=== PATIENT | female | born 1970 | race Caucasian/White ===

== ENCOUNTER 2024-10-02 02:03 | Inpatient (IN) | payer SELFPAY ==
[2024-10-01 23:50] VITALS: BP 168/107
--- NOTE | 2024-10-01 23:50 | PHANOTE ---
med rec note- no ecw records
[2024-10-01 23:52] VITALS: BP 119/78; BP 168/107
[2024-10-01 23:55] VITALS: BP 119/78
[2024-10-01 23:59] LABS: Glucose - Point of Care 131 mg/dl (70-99)
[2024-10-02] VITALS (29 sets, daily range): BP systolic 55–136; BP diastolic 38–122; BMI 39.6
[2024-10-02 00:02] LABS: Hematocrit 48.5 % (37.0-47.0); Hemoglobin 16.4 g/dL (12.0-16.0); Mean Corp Hgb Conc. 33.8 g/dL (33.0-37.0); Mean Corpuscular Volume 90.8 fL (81.0-99.0); Nucleated Red Blood Cells % 0 %; Platelet Count 249 10^3/uL (130-400); Red Cell Dist. Width 13.2 % (11.5-14.5)
--- NOTE | 2024-10-02 00:11 | ED.GENMED ---
History of Present Illness
General
Chief Complaint: Chest Pain
Source: patient, family and ambulance crew
Exam Limitations: clinical condition
Nursing documentation reviewed up to this point in time: agreed with
History of Present Illness
History of Present Illness:
Note:
CHIEF COMPLAINT(S)
Chest pain and nausea.
HISTORY OF PRESENT ILLNESS
The patient is a 54-year-old female who presented with the acute onset of chest pain and left arm pain at approximately 8:00 PM tonight. She reports feeling flushed and lightheaded at home before calling for help. The chest pain is described as a
pressure and was initially severe, now rated at a 5 out of 10. The pain radiated to her left arm and was constant. She also reports nausea and feeling thirsty. There is a mention of her skin being mottled and pale at presentation. The patient
describes the pain as not easing off and was persistent the entire time before presentation to the hospital. She quit smoking in April due to experiencing a similar but less severe chest discomfort, which scared her enough to stop. She denied any
previous heart problems and has not consulted her family physician for many years.
SOCIAL HISTORY
The patient has a history of smoking cigarettes but quit in April due to a prior chest discomfort experience. She denies any current alcohol or recreational drug use.
PHYSICAL EXAM
- Appearance: Skin initially described as mottled and pale.
- Cardiovascular: Chest pain rated 5 out of 10 with radiation to the left arm.
- General: The patient reports feeling nauseated.
Nursing notes reviewed and vital signs reviewed.
PROBLEM LIST
Acute Problems:
- Chest pain with left arm radiation
- Nausea
- History of smoking with recent cessation
PLAN
- Immediate electrocardiogram to evaluate cardiac function.
- Consult with meat stringer.
- Administer oxygen and continue to monitor vital signs closely.
- Administer aspirin as previously given.
DIFFERENTIAL DIAGNOSIS
The Differential Diagnosis includes, in no particular order and is not limited to:
- Acute coronary syndrome
- Myocardial infarction
- Angina pectoris
- Pulmonary embolism
- Aortic dissection
- Gastroesophageal reflux disease
- Costochondritis
- Anxiety disorder
- Pericarditis
- Pneumothorax
Disposition:
SUMMARY OF ENCOUNTER
The patient, a 54-year-old female, presented to the emergency department with an acute onset of chest pain radiating to the left arm, along with nausea. Initial assessment indicated potential acute coronary syndrome. The chest pain began around 8:00
PM and was described as a pressing sensation with a severity of 5 out of 10 at presentation. Skin appeared mottled and pale. Due to the presentation and risk factors, immediate actions were taken to assess and stabilize the patient, including the
administration of aspirin and oxygen therapy. An electrocardiogram was conducted to further evaluate cardiac function.
DISPOSITION
Transfer to the labelling machine operator.
ASSESSMENT
High suspicion of anterior ST-Elevation Myocardial Infarction (STEMI).
EMERGENCY TREATMENTS ADMINISTERED
- Aspirin was administered to manage suspected myocardial infarction.
MANAGEMENT OF THE PATIENTS CARE WAS DISCUSSED WITH
Homicide Squad Captain consultation conducted with Dr. Shane at bedside for further evaluation and management.
PLAN
Immediate transfer to the labelling machine operator for further intervention due to high suspicion of STEMI. Continue monitoring vital signs closely and maintain oxygen therapy during transfer.
INDEPENDENT REVIEW OF LABS AND INTERPRETATION OF TESTS
My independent review of the electrocardiogram indicates findings consistent with possible anterior STEMI, prompting urgent transfer to the cardiac catheterization lab.
MEDICAL DECISION MAKING
-Complexity of Data Reviewed: Acute conditions affecting care include potential acute coronary syndrome and anterior STEMI. Differential Diagnosis includes acute coronary syndrome, myocardial infarction, angina pectoris, pulmonary embolism, aortic
dissection, gastroesophageal reflux disease, costochondritis, anxiety disorder, pericarditis, pneumothorax.
-Data:
Category 1
Electrocardiogram ordered and independently reviewed, consistent with anterior STEMI.
Category 3
Discussion of management conducted with meat stringer Dr. Shane regarding urgent transfer for cardiac catheterization.
-Risk:
The decision was made for urgent intervention in the labelling machine operator due to the high risk of mortality associated with suspected anterior STEMI. Prescription drug management was initiated with aspirin administration.
DIAGNOSIS
Anterior ST-Elevation Myocardial Infarction (STEMI) - ICD-10: I21.0
Review of Systems
Review of Systems
Allergies reviewed?: Yes
All Other Systems: Not applicable
Musculoskeletal: Reports other (Arm pain)
Skin: Reports other (Diaphoresis)
Psychiatric: Reports anxiety
Phy Exam
General Physical Exam
General Presentation: severe distress
General age: appears older than age
General Skin: diaphoretic, mottled and pale
General Habitus: obese
General Mental: alert and usual mental status
General Hydration: appears well hydrated
ENT Exam
ENT Exam: EOMI, pharynx normal, neck supple and normocephalic
Eye Exam
Eye Exam: PERRL, cornea clear and conjunctiva normal
Cardiovascular Exam
Cardiovascular Exam: regular rate/rhythm and tachycardia
Pulmonary Exam
Pulmonary Exam: lungs clear, no respiratory distress, no rales, no crackles, no rhonchi, no stridor, no wheezing and no cough
Gastrointestinal Exam
Gastrointestinal Exam: normal bowel sounds, non tender, soft, no organomegaly, no pulsatile mass and non distended
Neurological Exam
Neurological Exam: alert, oriented x3, no motor deficits and speech normal
Musculoskeletal Exam
Musculoskeletal Exam: full ROM and no edema
Skin Exam
Skin Exam: normal color, warm/dry, no rash and no petechia
Psychiatric Exam
Psychiatric Exam: normal mood/affect
Scores
Heart Score for Chest Pain Patients
STEMI patient?: Yes
Course
Orders/Labs/Results
Orders:
Orders
10/01/24 23:46
Electrocardiogram (*1) Urgent
Reason for Study: Chest Pain
Cardiac Monitoring- Treatment ONCE
EKG- Treatment ONCE
IV Insert/Care/Rem.- Treatment PRN
Test Result ONCE
O2 Therapy [RESP] Urgent
Titrate/Wean O2 to maintain O2 sat greater than (%): 90
Special Instructions: Maintain sats >/=90%
Pulse Ox/spot Check [RESP] Urgent
Quantity: 1
Special Instructions: ON ROOM AIR
10/01/24 23:50
Basic Metabolic Panel Urgent
Comment: NO K
Complete Blood Count/With Diff Urgent
HCG, Serum Qualitative Screen Urgent
Comment: Notify provider if positive test present
Prothrombin Time Urgent
Troponin I Urgent
10/02/24 00:07
Fentanyl Citrate/Pf [Sublimaze] 100 mcg .ROUTE .STK-MED ONE
Heparin 10,000 units .ROUTE .STK-MED ONE
Midazolam HCl [Versed] 2 mg .ROUTE .STK-MED ONE
Verapamil Injectable [Isoptin/Verapamil Injection] 5 mg .ROUTE .STK-MED ONE
10/02/24 00:08
Heparin 1000 Units/500 ml [Heparin] 1,000 units in 500 ml .ROUTE .STK-MED
Heparin Sodium,Porcine/Ns/Pf [Heparin 2000 Units/1000 ml] 2,000 unit in 1,000 ml .ROUTE .STK-MED
Lidocaine HCl/Pf [Xylocaine-Mpf 1% Vial] 100 mg .ROUTE .STK-MED ONE
Nitroglycerin [Tridil] 1,500 mcg .ROUTE .STK-MED ONE
10/02/24 00:10
Heparin 5,000 units .ROUTE .STK-MED ONE
Ticagrelor [Brilinta] 180 mg .ROUTE .STK-MED ONE
10/02/24 00:15
Amiodarone [Cordarone] 900 mg DEXTROSE 5% PVC-free BAG [D5W PVC-free BAG] 500 ml IV PER PROTOCOL
10/02/24 00:53
Eptifibatide [Integrilin] 20 ml .ROUTE .STK-MED
10/02/24 00:58
Fentanyl Citrate/Pf [Sublimaze] 100 mcg .ROUTE .STK-MED ONE
10/02/24 01:03
NORepinephrine 4 MG/250 ML [Levophed] 4 mg in 250 ml .ROUTE .STK-MED
10/02/24 01:13
EPTIFIBATIDE 75 mg/100 mL [Integrilin] 75,000 mcg in 100 ml .ROUTE .STK-MED
Furosemide [Lasix] 40 mg .ROUTE .STK-MED ONE
10/02/24 01:17
Phenylephrine HCl/0.9% NaCl [Chema-Synephrine] 1,000 mcg .ROUTE .STK-MED ONE
10/02/24 01:23
Admit Patient As Directed
Co-Sign Provider:
Level of Care: Inpatient admission
Assign to:: IVU
Physician / Group: Svitlana
Diagnosis: Anterior STEMI
Patient Condition: Serious
Reason for Hospitalization: Anterior STEMI
Expected length of stay greater than two midnights?: Yes
ELOS- Estimated Length of Stay in days: 4
I certify the patient meets the requirements for IP care: Yes
Electrocardiogram (*1) Urgent
Reason for Study: Other
Other Reason for Exam: s/p intervention
Code Status As Directed
Resuscitation Status: Full Code
CARDIAC REHAB CONSULT Routine
Co-Sign Provider:
Cardiac Rehab & Exercise Evaluation Referral
Type of Cardiac Rehab Referral: Outpatient
Diagnosis: STEMI
Date of Diagnosis/Surgery:
Referring Provider: John Shane
[facility] Intensive Cardiac Rehab Exercise Prescription
The above named person is capable of participating in an intensive cardiac rehab exercise therapy program
under the guidance of the [facility] cardiac rehab staff, outpatient registered dieticians and
supervision of a physician.
ICR Program Objectives:
Provide supervised exercise, cooking classes, nutritional counseling and healthy mind-set education to
improve the function/symptom free work capacity to an optimal level as well as control risk factors to
prevent the progression of heart disease. During the supervised exercise therapy session some or all of
the following may be included in the cardiac rehab session: ECG telemetry, BP, heart rate, rate of
perceived exertion, symptoms/tolerance, cholesterol testing and education. Exercise modalities may
include: treadmill, upright or recumbent bike, spin bike, rowing machine, elliptical, recumbent
elliptical, arm-bike machine, recumbent stepper and free weights.
Intensity:
All CR staff will use ACSM guidelines: Most patients will exercise in the following range: Heart Rate
[place] range of 40% to 80% & Oxygen Uptake reserve range 40-80% (VO2R). Peak heart rate and VO2 are
derived from the cardiac rehab submaximal graded exercise test at RPE of 13/14 out of 20. Initial
intensity range: RPE 11 to 14/20 and may expand to 11 to 16/20.
Duration & Frequency:
If appropriate the patient will be progressed up to 40 minutes of exercise therapy. Patients will be
instructed to come three times a week in cardiac rehab and at a home/other gym to achieve optimal
physical activity/exercies i.e. 4000-10,000 steps per day.
Education:
The patient will receive one-on-one education during their orientation, initial exercise evaluation, ITP
reassessments and discharge session. Each exercise session will also include an education class (30-40
minutes).
Activity As Directed
Activity Level: Out of Bed- Chair
Comment: bed/chair rest for 2 hours then out of bed ad ravindra
Landing Worker Procedure As Directed
Cardiac Cath Procedure: percutaneous coronary intervention
Intake/ Output As Directed
Frequency: Per unit guidelines
Notify MD As Directed
Notify physician if: immediately for chest pain or bleeding from access site(s)
Radial Artery Hemostasis Method As Directed
Instructions:: 3 mL out at 2 hour posts placement of band
3 mL out at 2 1/2 hours post placement of band
3 mL out at 3 hours post placement of band
Off at 3 1/2 hours post placement of band
If any oozing or hemotoma occurs:: re-inflate band and call provider
Site Checks As Directed
Check access site for bleeding/hematoma: Yes
Comment: on arrival, Q15min x4, Q30min x2, Q1 hr x2, Q2 hr x2, Q4 hr or per
protocol
Vascular Checks As Directed
Location: distal to access site - pulse check
Frequency: Other
Comment: on arrival, Q15min x4, Q30min x2, Q1 hr x2, Q2 hr x2, Q4 hr or per protocol
Vital Signs As Directed
Frequency: Other
Additional Instructions:: on arrival, Q15min x4, Q30min x2, Q1 hr x2, Q2 hr x2, then Q4 hr or per unit
protocol
PRN Pain Medication Management As Directed
May give lesser potent ordered pain med per pt: Yes
preference::
Protocol:: Medication orders for pain may be administered in a
manner that supports deferring to patient preference
when the pt is:
- Requesting an ordered lesser potent pain medication.
Least to most potent pain medications are defined
as: acetaminophen < NSAID < tramadol < opioids
(morphine, oxycodone, hydromorphone).
- Requesting a lesser dose of the same medication IF
ORDERED.
- Requesting a less intrusive route of administration
if both routes are prescribed by the provider (PO <
IV).
10/02/24 01:24
DX Deep Vein Thrombosis Video Routine
10/02/24 01:27
Ondansetron Injectable [Zofran] 4 mg .ROUTE .STK-MED ONE
10/02/24 01:45
EPTIFIBATIDE 75 mg/100 mL [Integrilin] 75,000 mcg in 100 ml IV ORDERED RATE
10/02/24 02:00
Flush (0.9% Sodium Chloride) [Flush (Nss)] See Dose Instructions IV PER PROTOCOL
10/02/24 02:57
Cardiovascular Evaluation IN AM
Complete Blood Count/No Diff IN AM
LDL Cholesterol, Direct Routine
Troponin I Q6H
10/02/24 02:58
Glycohemoglobin (HgbA1c) Routine
10/02/24 06:00
Echo 2D MMode Color/Doppler IN AM
Reason for Study: Anterior STEMI and occluded right coronary
Cardiology Consult: John Shane
Electrocardiogram (*1) IN AM
Reason for Study: Other
Other Reason for Exam: s/p intervention
Cholesterol Lowering
At Your Request: Full Participation
Cholesterol Lowering: Sodium, 2 Gram
10/02/24 07:34
Troponin I Q6H
10/02/24 08:00
Aspirin Chewable [Low Strength Aspirin] 81 mg PO DAILY
Pantoprazole [Protonix] 40 mg PO DAILY
Ticagrelor [Brilinta] 90 mg PO BID
10/02/24 13:52
Troponin I Q6H
10/02/24 18:00
Atorvastatin [Lipitor] 80 mg PO QPM
Enoxaparin Sodium [Lovenox] 40 mg SC QPM
Abnormal Lab Results
10/01/24 10/01/24 10/02/24
23:50 23:58 00:23
WBC 17.3 H 10^3/uL
(4.8-10.8)
Hgb 16.4 H g/dL
(12.0-16.0)
Hct 48.5 H %
(37.0-47.0)
Abs Immat Gran (auto) 0.1 H 10^3/uL
(0-0.05)
Absolute Neuts (auto) 14.1 H 10^3/uL
(1.4-6.5)
Neutrophils % 81.2 H %
(42.2-75.2)
Lymphocytes % 15.2 L %
(20.5-51.1)
Chloride 109 H mmol/L
(98-107)
Carbon Dioxide 21 L mmol/L
(22-30)
Creatinine 1.5 H mg/dL
(0.6-1.0)
Glucose 199 H mg/dl
(70-99)
Troponin I 0.971 H* ng/ml
POC Glucose 131 H mg/dl
(70-99)
POC ACT Low Range 184 H Seconds
(116-155)
10/02/24 10/02/24 10/02/24
00:35 00:52 01:15
WBC
Hgb
Hct
Abs Immat Gran (auto)
Absolute Neuts (auto)
Neutrophils %
Lymphocytes %
Chloride
Carbon Dioxide
Creatinine
Glucose
Troponin I
POC Glucose
POC ACT Low Range 234 H Seconds 303 H Seconds 268 H Seconds
(116-155) (116-155) (116-155)
10/01/24 23:50
10/01/24 23:50
Vital Signs
Initial and Last Documented VS:
Initial Vital Signs
Pulse Resp
120 22
10/01/24 23:45 10/01/24 23:45
Last Documented Vital Signs
Temp Pulse Resp BP Pulse Ox
98.3 F 88 17 96/67 96
10/02/24 23:00 10/02/24 23:00 10/02/24 23:00 10/02/24 23:00 10/02/24 23:00
*Pulse Oximetry
SaO2: 99
Oxygen Mode of Delivery: Simple mask
Patient hypoxic: no
*Critical Care Note
Total Time (30-74mins, 75-104mins- exclusive of procedures): 32 (Critical care statement: A total of 32 minutes of critical care time was provided for this patient. This time is separate from time utilized to perform the aforementioned documented
procedures. Aggregate critical care time includes only time during which I was engaged in work directl)
ED Attending Note
-
Portions of this chart may have been created with voice recognition software.� Occasional wrong word or��sound alike� substitutions may have occurred due to the inherent limitations of voice recognition software.
Discharge Plan
Departure
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
Date of Disposition: 10/02/24
Time of Disposition: 00:14
Admit to: labelling machine operator
Presentation/result/management discussed w/ accepting MD/DO: Svitlana
Condition: Serious
Discharge Problem:
ST elevation (STEMI) myocardial infarction
Interventions
Interventions:
*General Assessment Last Done: 10/01/24 23:45
*Neglect/Abuse Screening Last Done: 10/01/24 23:45
*ED- Fall Risk Assessment Last Done: 10/01/24 23:45
*ED COVID-19 Vaccine History Last Done: 10/01/24 23:45
*Nursing Disposition Last Done: 10/02/24 00:25
ED- Cardiac Assessment Last Done: 10/01/24 23:55
Discharge Date and Time
Discharge Date/Time: 10/02/24 00:25
[2024-10-02 00:15] LABS: INR 0.89; PT 12.6 Sec (11.4-14.6)
[2024-10-02 00:18] LABS: HCG, Serum Qualitative Screen Negative
[2024-10-02 00:28] LABS: Blood Urea Nitrogen 16 mg/dl (7-17); Calcium 9.8 mg/dl (8.4-10.2); Carbon Dioxide 21 mmol/L (22-30); Chloride 109 mmol/L (98-107); Estimated Creatinine Clearance 44 ml/min; Glucose 199 mg/dl (70-99); Sodium 140 mmol/L (135-145); eGFR 41.16
[2024-10-02 00:29] LABS: ACT-LR - POC 184 Seconds (116-155)
[2024-10-02 00:43] LABS: Troponin I 0.971 ng/ml
[2024-10-02 00:44] LABS: ACT-LR - POC 234 Seconds (116-155)
[2024-10-02 00:58] LABS: ACT-LR - POC 303 Seconds (116-155)
[2024-10-02 01:21] LABS: ACT-LR - POC 268 Seconds (116-155)
--- NOTE | 2024-10-02 01:48 | ITS.CL.CATH ---
Business Office Representative - Catheterization
Cardiac Catheterization
Procedure Report:
LEFT HEART CATH AND CORONARY INTERVENTION
Date of Procedure: October 02, 2024
Referring: [facility]
PROCEDURES:
1. Left heart catheterization with coronary and single-plane left ventriculography
2. Successful stenting of the proximal LAD with a 2.5 x 22 mm Varnell stent that was implanted at nominal pressures and postdilated proximally to 14 tom, in the mid stent to 20 tom, and distally to 18 tom
3. Intravascular ultrasound catheter was dropped, however, IVUS was not performed secondary to a computer issue which had resolved by the end of the procedure
INDICATION: This is a 54-year-old female who rarely seeks any medical attention and has not been seen by her family physician for the past 8 to 10 years. She states that she was a heavy smoker but stopped in April when she developed chest
discomfort. Her chest discomfort improved with smoking cessation. This evening she developed the sudden onset of severe substernal chest discomfort radiating into the arm beginning at approximately 8 PM. At her 's insistence, 911 was
called at approximately midnight because she looks so uncomfortable. She was diaphoretic and complaining of 8-10/10 substernal chest pressure which improved slightly with heparin and nitroglycerin. Her electrocardiogram at home was worrisome for
an evolving anterior wall myocardial infarction and a prehospital STEMI alert was activated
ACCESS: Right radial artery, 6 Turkish sheath
HEMODYNAMICS (mmHg):
AO (s/d, m) : 116/71, 92
LV (s/d) : 128/29
LVEDP : 38
CORONARY FINDINGS
Dominance: Right
LEFT MAIN: Normal
LEFT ANTERIOR DESCENDIN% ostial narrowing. The LAD becomes 100% occluded in the mid vessel at the origin of a small diseased first diagonal branch with an ambiguous cap.
RAMUS INTERMEDIUS: Moderate caliber vessel that bifurcates into 2 daughter branches. There is a 50% stenosis in the more lateral daughter branch just beyond the bifurcation
CIRCUMFLEX: Small and supplies a limited territory
RIGHT CORONARY: Proximally occluded with the distal vessel filling via faint [id number] and [id number] collaterals
VENTRICULOGRAPHY: Left ventriculography is performed in an MATOS projection. The ventricle is mildly dilated and severely hypokinetic. The anterior basal segment moves best with mid to distal anterior and apical hypokinesis to dyskinesis. The
inferior apical wall is also noted to be severely hypokinetic. Visually the estimated ejection fraction is 20%
ANGIOPLASTY PROCEDURE DETAIL: Upon review of the diagnostic catheterization films we elected to proceed with percutaneous revascularization of the occluded LAD with hopes of finding the occlusion beyond the first diagonal branch. Intravenous
heparin was administered and the ACT was monitored throughout the procedure. Fortunately, the BMW guidewire across the occluded segment in the mid LAD and was advanced to the distal vessel. Balloon predilation was performed using a 2.0 x 15 mm
Euphora balloon with serial inflations performed from the proximal to mid LAD. Antegrade flow was restored. At this point a double bolus of Integrilin was administered. She was antiplatelet na�ve and suffering from a large anterior wall
myocardial infarction. The Integrilin was administered according to standard protocol.
A 2.5 x 22 mm Gonzalo stent was then advanced over the guidewire and positioned with angiographic and fluoroscopic guidance in the cranial and caudal views. The Gonzalo stent was implanted at 12 tom. An intravascular ultrasound catheter was dropped,
however, intravascular ultrasound was not performed given a computer error. At this point the decision was made to post dilate the stent to high pressures with a 2.5 mm noncompliant balloon as it appeared well conformed to the vessel diameter.
Distally the stent was implanted with a 2.5 Euphora noncompliant balloon to 18 tom, 20 tom within the midportion of the stent, and 14 tom on the ostial portion of the stent.
SEDATION: 56 minutes of procedural sedation was utilized. An independent medical billing associate was present to assist with and help manage the patient's level of consciousness and physiologic status
RADIATION SUMMARY: Fluoro Time (min): 13.5, Dose (mGy): 1657, DAP (Gy.cm2) : 103
CONCLUSIONS
1. Evolving anterior wall myocardial infarction with successful stenting of the proximal to mid LAD with a 2.5 x 22 mm Varnell stent that was postdilated with a 2.5 mm noncompliant balloon to high pressures
2. Chronically occluded right coronary artery collateralized into right to right and left to right fashion
3. 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 The LVEDP was elevated to 38 mmHg and an in his furosemide was administered
RECOMMENDATIONS
1. Trend serial troponin levels and electrocardiogram. Obtain fasting lipid profile and hemoglobin A1c
2. Echocardiogram in a.m.
3. 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
4. Uninterrupted dual antiplatelet therapy with aspirin and ticagrelor
5. High intensity statin therapy
6. Further medical management based on clinical course
Copy to: Dr. John Shane
[2024-10-02 03:26] LABS: Hematocrit 42.1 % (37.0-47.0); Hemoglobin 14.1 g/dL (12.0-16.0); Mean Corp Hgb Conc. 33.5 g/dL (33.0-37.0); Mean Corpuscular Volume 90.9 fL (81.0-99.0); Platelet Count 210 10^3/uL (130-400); Red Cell Dist. Width 13.3 % (11.5-14.5)
[2024-10-02 03:49] LABS: HDL Cholesterol 48 mg/dl
[2024-10-02 04:30] LABS: Troponin I 208.000 ng/ml
[2024-10-02 04:46] LABS: LDL Cholesterol, Direct 122 mg/dl
--- NOTE | 2024-10-02 06:25 | PTCARENOTE ---
Rec'd pt as stemi admission from greenhouse laborer. Pt AAO*3, BP systolic in the 80-90's on arrival to IVU, and SR on TELE monitor. EKG shows previous infarct/stemi Dr. Shane and CT GABE Jordan aware. Pt with R radial site intact. Pt resting iwth call
whipple in reach and plan of care ongoing. See MAR and flowchart for full pt care and assessment. Rec'd troponin of [address] GABE Ramos aware.
[2024-10-02 07:55] LABS: Glycohemoglobin (HgbA1c) 6.0 % (4.0-5.6)
[2024-10-02 09:13] LABS: Troponin I > 400.000 ng/ml
[2024-10-02] MEDS: ZOFRAN 4 MG IV (09:33)
--- NOTE | 2024-10-02 09:38 | W.PN.CARDCBS ---
Addendum entered and electronically signed by Sanya Oonfre MD 10/02/24 11:24:
Patient seen, interviewed and examined by me.
Emergent Cath 10/01/24 In the setting of large anterior wall ST segment elevation myocardial infarction(peak troponin > 400) finds multivessel coronary artery disease treated with emergent coronary intervention of the culprit vessel which is a100%
occlusion of the mid LAD which was successfully stented. Also noted to have GAME DESIGNER/CREATIVE DIRECTOR of RCA.
Ventriculography demonstrates severe left ventricular systolic dysfunction with ejection fraction of 20%.
PCP: None
Loading Machine Operator Helper: None prior to admission, initially seen by Dr. Shane
This morning she describes she is no longer having the type of chest pain that brought her into the emergency room last night. She is having occasional chest discomfort when she takes a deep breath.
Well-appearing, no acute distress
Regular rate and rhythm with normal S1 and S2, no S3 no S4. There is a grade 1/6 apical holosystolic murmur and no rubs. PMI is normally placed.
Lungs are clear to auscultation bilaterally without wheezes rales or rhonchi.
Abdomen soft nontender nondistended with normoactive bowel sounds
Extremities show trace pretibial edema bilaterally no clubbing or cyanosis.
Neurologic exam is grossly nonfocal.
Impression:
Presented with chest pain
Evolving anterior STEMI, peak trop >400
CAD
100% occlusion of mid LAD s/p 2.5 x 22 mm [place] JULIA 10/02/2024
GAME DESIGNER/CREATIVE DIRECTOR of RCA by cath 5CM, EF 20% by ventriculography
HTN
HLD
Pre-DM, Hgb A1c 6.0%
Renal insufficiency, creat 1.5]
Prior tobacco abuse, quit in 04/2024
Echo 10/02/2024: Study pending
Recommendations
Acute anterior wall ST segment elevation myocardial infarction with peak troponin of greater than 400 and associated with severe left ventricular systolic dysfunction by ventriculography and elevated LVEDP in the acute setting.
Continue Integrilin drip
Maintain aspirin 81 mg daily
Maintain Brilinta 90 mg twice daily
Maintain high-dose statin, atorvastatin 80 mg daily
Blood pressure is improved, add beta-tereso today
Heart failure with reduced ejection fraction. Severe left ventricular systolic dysfunction may impart be related to her acute myocardial infarction and while there may be some expectation for improvement in left ventricular systolic function with
revascularization, she also has known chronic total occlusion of the RCA which could be playing at least some role in left ventricular systolic dysfunction.
Check echocardiogram this morning
Adding beta-tereso today as blood pressures improved. Toprol-XL 12.5 mg daily
Consideration for VAIBHAV inhibitor/ARB as blood pressure and renal function allow (creatinine 1.5 on admission, uncertain of baseline)
Also to consider SGLT2 inhibitor
Renal dysfunction, uncertain if acute or chronic. Creatinine 1.5 on admission, uncertain of baseline
Checking repeat labs this morning to include renal function
Original Note:
Today's Communication / Plan
-
Anterior STEMI overnight. s/p LAD PCI
Continue to trend troponin
Continue aspirin, brilinta
Continue Integrilin drip
Check echo
New to high intensity statin.
Zofran given for nausea
Impression / Plan
-
PCP: None
Loading Machine Operator Helper: None prior to admission, initially seen by Dr. Shane
Impression:
Presented with chest pain
Evolving anterior STEMI, peak trop >400
CAD
100% occlusion of mid LAD s/p 2.5 x 22 mm [place] JULIA 10/02/2024
GAME DESIGNER/CREATIVE DIRECTOR of RCA by cath 10/02/2024
CM, EF 20% by ventriculography
HTN
HLD
Pre-DM, Hgb A1c 6.0%
Renal insufficiency, creat 1.5]
Prior tobacco abuse, quit in 04/2024
Echo 10/02/2024: Study pending
Plan:
-Presented with chest pain with radiation to left arm. Admitted with evolving anterior STEMI, troponin >400.
-Taken urgently to laborer general overnight 10/02 and found to have 100% occlusion of the mid LAD which was successfully stented. Also noted to have GAME DESIGNER/CREATIVE DIRECTOR of RCA.
-Continue aspirin and Brilinta.
-On Integrilin drip.
-Chest pain improved. Does note some soreness this AM which feels different from presenting chest pain.
-Biggest complaint currently is nausea. Zofran ordered, await response. QTc stable by ECG 10/02 at 469 ms
-LDL 122. New to high intensity statin.
-Echo pending this AM. EF noted to be 20% by ventriculography during cath 10/02.
-Hypotension limits up titration of medical therapy at this time with BP 81/66 this AM
-Runs of NSVT noted on initial ECG and on tele this AM. Continue to follow. Ideally would start BB as BP allows
Progress Note - Loading Machine Operator Helper
Subjective
Date of Service: October 02, 2024
Some chest soreness noted as well as nausea.
Objective
Labs:
10/02/24 02:57
10/01/24 23:50
Labs
Hgb 14.1 g/dL (12.0-16.0) 10/02/24 02:57
Hct 42.1 % (37.0-47.0) 10/02/24 02:57
Plt Count 210 10^3/uL (130-400) 10/02/24 02:57
PT 12.6 Sec (11.4-14.6) 10/01/24 23:50
INR 0.89 10/01/24 23:50
Sodium 140 mmol/L (135-145) 10/01/24 23:50
Potassium mmol/L (3.5-5.1) 10/01/24 23:50
BUN 16 mg/dl (7-17) 10/01/24 23:50
Creatinine 1.5 mg/dL (0.6-1.0) H 10/01/24 23:50
Glucose 199 mg/dl (70-99) H 10/01/24 23:50
Troponins
10/01/24 10/02/24 10/02/24
23:50 02:57 07:34
Troponin I 0.971 H* 208.000 H* D > 400.000 H* D
Vital Signs and I&O:
Vital Signs
Temp Pulse Resp BP Pulse Ox
97.8 F 90 20 97
10/02/24 06:54 10/02/24 03:00 10/02/24 06:54 10/02/24 02:47 10/02/24 06:54
Vital Signs
Temp Pulse Resp BP Pulse Ox
97.8 F 90 20 97
10/02/24 06:54 10/02/24 03:00 10/02/24 06:54 10/02/24 02:47 10/02/24 06:54
Intake & Output
09/30/24 10/01/24 10/02/24 10/03/24
06:59 06:59 06:59 06:59
Output Total 500 / 500
Balance -500 / -500
Physical Exam
Physical Exam
GEN: No distress, awake, alert, oriented x3
HEENT: supple, anicteric, mmm
LUNGS: CTA b/l, no wheezes/rales
CV: Reg, S1/S2, no murmur
EXT: No clubbing, cyanosis, or edema
NEURO: Gross non-focal
SKIN: Warm, dry, no rash
[2024-10-02] MEDS: LOW STRENGTH ASPIRIN 81 MG PO (10:50)
[2024-10-02] MEDS: BRILINTA 90 MG PO ×2 (10:51→20:48)
[2024-10-02] MEDS: PROTONIX 40 MG PO (10:51)
[2024-10-02] MEDS: TOPROL XL 12.5 MG PO (11:37)
[2024-10-02] MEDS: INTEGRILIN 100 IV (12:16)
--- NOTE | 2024-10-02 13:02 | PTCARENOTE ---
Discussed new medicines for patient and plan of care at this time. VSS. Pt continues to c/o 'chest ache w/ deep breathing'. Offered comfort measures. Meds as ordered. Will monitor.
--- NOTE | 2024-10-02 14:28 | CM ---
Noted that patient does not have insurance coverage. Noted that patient was prescribed Brilinta. Good RX coupon available for Ticagrelor (generic version), estimated cost is $31.49. I printed out coupon and will place in chart.
TT to [facility] to update that all medications should be generic.
--- NOTE | 2024-10-02 14:30 | CM ---
CM following for DC planning needs.
Met w/ patient, spouse + dtr. at bedside to complete initial assessment.
Pt. resides in a private, 2 STH w/ spouse, dtr. Pt. is functionally indep. at baseline w/ ADLs, mobility without the use of any assisted device.
Pt. does not work and she has no medical insurance.
We reviewed that medications will need to be generic upon DC. TT to PA-C to update.
Goal is for home, no needs.
Will cont. to follow.
[2024-10-02 14:44] LABS: Albumin 4.2 g/dl (3.5-5.0); Alkaline Phosphatase 66 U/L (38-126); Blood Urea Nitrogen 19 mg/dl (7-17); Calcium 9.3 mg/dl (8.4-10.2); Carbon Dioxide 21 mmol/L (22-30); Chloride 109 mmol/L (98-107); Estimated Creatinine Clearance 41 ml/min; Glucose 133 mg/dl (70-99); Potassium 4.3 mmol/L (3.5-5.1); Sodium 141 mmol/L (135-145); Total Protein 6.9 g/dl (6.3-8.2); eGFR 38.09
[2024-10-02 14:56] LABS: Troponin I 330.000 ng/ml
[2024-10-02 14:59] LABS: ALT (SGPT) 114 U/L (0-35); AST (SGOT) 748 U/L (14-36)
[2024-10-02] MEDS: LIPITOR 80 MG PO (17:34)
[2024-10-02] MEDS: LOVENOX 40 MG SC (18:11)
[2024-10-03] VITALS (10 sets, daily range): BP systolic 78–109; BP diastolic 53–79; BMI 39.2
[2024-10-03 04:52] LABS: ALT (SGPT) 84 U/L (0-35); AST (SGOT) 420 U/L (14-36); Albumin 3.3 g/dl (3.5-5.0); Alkaline Phosphatase 65 U/L (38-126); Blood Urea Nitrogen 21 mg/dl (7-17); Calcium 8.7 mg/dl (8.4-10.2); Carbon Dioxide 25 mmol/L (22-30); Chloride 109 mmol/L (98-107); Estimated Creatinine Clearance 43 ml/min; Glucose 119 mg/dl (70-99); Potassium 4.1 mmol/L (3.5-5.1); Sodium 138 mmol/L (135-145); Total Protein 5.7 g/dl (6.3-8.2); eGFR 41.16
--- NOTE | 2024-10-03 07:07 | W.PN.UPDATE ---
Update Note
Progress Note Update
RN reported low BP 87/62 HR 80, asymptomatic. Repeat BP 97/73 HR 85. no new intervention at present.
--- NOTE | 2024-10-03 08:33 | W.PN.CARDCBS ---
Today's Communication / Plan
-
Continue new medical therapy which was started just yesterday.
Assess for any ambulatory symptoms today
Attempt up titration of guideline directed medical therapy for heart failure with reduced ejection fraction if blood pressure and renal function allows.
Impression / Plan
-
PCP: None
Public Events Facilities Rental Manager: None prior to admission, initially seen by Dr. Shane
Impression:
Presented with chest pain
Evolving anterior STEMI, peak trop >400
CAD
100% occlusion of mid LAD s/p 2.5 x 22 mm [place] JULIA 10/02/2024
LEAD MAN OVER ALL DIES IN PATTERN SHOP of RCA by cath 10/02/2024
CM, EF 20% by ventriculography
HTN
HLD
Pre-DM, Hgb A1c 6.0%
Renal insufficiency, creat 1.5]
Prior tobacco abuse, quit in 04/2024
Cath 10/02/2024: 100% occlusion of mid LAD, LEAD MAN OVER ALL DIES IN PATTERN SHOP of RCA, underwent drug-eluting stent to the mid LAD lesion. LVEDP 38
Echo 10/02/2024: Severely reduced left ventricular systolic function with ejection fraction 15 to 20% with multiple segmental wall motion abnormalities involving the inferior septum, anterior septum, inferior and apical segments.
Plan:
Presented with chest pain with radiation to left arm. Admitted with evolving anterior STEMI, troponin >400.
Taken urgently to [facility] labor and delivery overnight 10/02 and found to have 100% occlusion of the mid LAD which was successfully stented. Also noted to have LEAD MAN OVER ALL DIES IN PATTERN SHOP of RCA.
Pain-free since coronary intervention. Second troponin down to 330
Integrilin drip completed
Maintain aspirin 81 mg daily and Brilinta 90 mg twice daily (new this admission)
Maintain Toprol-XL 12.5 mg daily (new this admission)
Maintain atorvastatin 80 mg daily (new this admission). LDL 122. New to high intensity statin.
Hypotension has limited further up titration of medical therapy as well as addition of guideline directed medical therapy for heart failure with reduced ejection fraction
Additionally, renal insufficiency is present uncertain chronicity, creatinine between 1.5 and 1.6, this further limits guideline directed medical therapy for HFrEF
Continue to trend troponin today
Up and ambulate today and assess activity related symptoms
Discussed in detail with patient, all of her questions have been answered.
Total time spent today was 52 minutes in preparing to see the patient, seeing the patient and coordination of care. This included review of recent laboratory evaluations, cardiac testing, imaging studies, records as well as personally interviewing
and examining the patient, which included discussion of their tests, review/ordering medications, and communicating with other healthcare professionals and also treatment planning as well as counseling.
Progress Note - Public Events Facilities Rental Manager
Subjective
Date of Service: October 03, 2024
Sleeping but easily arousable. Describes no chest pain or shortness of breath at rest. Admits she has not ambulated much at all as of yesterday.
Objective
Labs:
10/02/24 02:57
10/03/24 03:32
Labs
Hgb 14.1 g/dL (12.0-16.0) 10/02/24 02:57
Hct 42.1 % (37.0-47.0) 10/02/24 02:57
Plt Count 210 10^3/uL (130-400) 10/02/24 02:57
PT 12.6 Sec (11.4-14.6) 10/01/24 23:50
INR 0.89 10/01/24 23:50
Sodium 138 mmol/L (135-145) 10/03/24 03:32
Potassium 4.1 mmol/L (3.5-5.1) 10/03/24 03:32
BUN 21 mg/dl (7-17) H 10/03/24 03:32
Creatinine 1.5 mg/dL (0.6-1.0) H 10/03/24 03:32
Glucose 119 mg/dl (70-99) H 10/03/24 03:32
Troponins
0710/02/24 10/02/24
23:50 02:57 07:34
Troponin I 0.971 H* 208.000 H* D > 400.000 H* D
10/02/24
13:52
Troponin I 330.000 H*
Vital Signs and I&O:
Vital Signs
Temp Pulse Resp BP Pulse Ox
97.8 F 82 18 93/73 97
10/03/24 08:24 10/03/24 07:00 10/03/24 08:24 10/03/24 05:50 10/03/24 08:24
Vital Signs
Temp Pulse Resp BP Pulse Ox
97.8 F 82 18 93/73 97
10/03/24 08:24 10/03/24 07:00 10/03/24 08:24 10/03/24 05:50 10/03/24 08:24
Intake & Output
10/01/24 10/02/24 10/03/24 10/04/24
06:59 06:59 06:59 06:59
Intake Total 260 / 260
Output Total 500 / 500 300 / 300
Balance -500 / -500 -40 / -40
Physical Exam
Physical Exam
No acute distress
Regular rate and rhythm with normal S1 and S2, no S3 no S4 grade 1/6 apical holosystolic murmur no rubs. PMI is laterally and inferiorly displaced
Abdomen soft nontender nondistended with normoactive bowel sound
Extremity shows no clubbing cyanosis, there is +1 pretibial edema bilaterally
Neurologic exam is grossly nonfocal
Lungs are clear to auscultation bilaterally
[2024-10-03] MEDS: TOPROL XL 12.5 MG PO (09:28)
[2024-10-03] MEDS: BRILINTA 90 MG PO ×2 (09:28→20:48)
[2024-10-03] MEDS: PROTONIX 40 MG PO (09:28)
[2024-10-03] MEDS: LOW STRENGTH ASPIRIN 81 MG PO (09:28)
[2024-10-03 11:11] LABS: Troponin I 136.000 ng/ml
--- NOTE | 2024-10-03 12:35 | PTCARENOTE ---
Patient resting in bed, her at the bedside. Denies any chest pain or sob. States she is feeling much better than yesterday. Was able to eat some breakfast and the discomfort she was having with inspiration has subsided. Right wrist is
tender, but dressing is dry and intact with a strong pulse and no signs of hematoma. Patient encouraged to watch CAD videos, and I reviewed information in CAD book with her. Encouraged to ambulate in her room and gradually increase her activity as
she can tolerate. States she still feels that she is easily fatigued.
[2024-10-03] MEDS: LIPITOR 80 MG PO (18:20)
[2024-10-03] MEDS: LOVENOX 40 MG SC (18:20)
--- NOTE | 2024-10-03 18:39 | PTCARENOTE ---
Patient only ambulated in her room but stated she wasn't able to do much, that she felt fatigued and was focusing on trying to eat since she wasn't able to tolerate much PO yesterday. Using 2L NC intermittently, wearing it presently, when
questioned if she felt sob, she stated she was on a long phone conversation and felt winded and placed the O2 back on.
[2024-10-04 04:21] VITALS: BP 107/74
[2024-10-04 05:06] LABS: ALT (SGPT) 50 U/L (0-35); AST (SGOT) 156 U/L (14-36); Albumin 3.2 g/dl (3.5-5.0); Alkaline Phosphatase 63 U/L (38-126); Blood Urea Nitrogen 26 mg/dl (7-17); Calcium 8.7 mg/dl (8.4-10.2); Carbon Dioxide 25 mmol/L (22-30); Chloride 112 mmol/L (98-107); Estimated Creatinine Clearance 46 ml/min; Glucose 124 mg/dl (70-99); Potassium 4.2 mmol/L (3.5-5.1); Sodium 139 mmol/L (135-145); Total Protein 5.7 g/dl (6.3-8.2); eGFR 44.71
[2024-10-04 05:54] LABS: Troponin I 85.700 ng/ml
[2024-10-04 07:50] VITALS: BP 102/74; BMI 39.1
--- NOTE | 2024-10-04 08:36 | W.PN.CARDCBS ---
Addendum entered and electronically signed by Mara Floyd PA-C 10/04/24 10:37:
[id number]
Addendum entered and electronically signed by Danny Banegas MD 10/04/24 10:11:
I saw and examined the patient.
The GLUING MACHINE ADJUSTER or PA's note was reviewed and I agree with the note.
Comment: General: Well developed, well nourished in NAD.
Neck: Supple, no JVD, HJR, carotids +2 B/L, no bruits bilaterally.
Heart: Non displaced PMI, RRR, no murmurs, No S3, S4, no rubs.
Lungs: Clear to auscultation bilaterally, no wheeze, rhonchi, rubs bilaterally,
normal expiratory phase.
Extremities: No clubbing, cyanosis or edema bilaterally.
Neuro: Grossly nonfocal, awake, alert and oriented x3.
Stable from cardiology viewpoint but remains severely inactive. She is encouraged to get out of bed and ambulate. If stable possible discharge later today. Follow-up has been arranged. She has coverage for Brilinta through [employer]. Discharge
greater than 30 minutes
Original Note:
Today's Communication / Plan
-
Change from Brilinta to Plavix
I called cardiac rehab to check in with patient about cost---heard back from rehab, they didn't realize patient did not have insurance and will come back to room to discuss alternatives
Patient needs to look up cost of meds using [employer] [facility]lan or empirically send to [employer] or [employer]
Needs to get OOB and eat for today
Impression / Plan
-
PCP: None
Facilities Manager: None prior to admission, initially seen by Dr. Shane
Impression:
Presented with chest pain
Evolving anterior STEMI, peak trop >400
CAD
100% occlusion of mid LAD s/p 2.5 x 22 mm Gonz[place] JULIA 10/02/2024
ELECTRICAL EQUIPMENT TESTER of RCA by cath 10/02/2024
ICM, EF 20% by ventriculography, 15-20% by echo 10/02/24
HTN
HLD
Possible CKD, Cre 1.5 on admission without previous for comparison
Prior tobacco abuse, quit in 04/2024
Hyperglycemia and prediabetes
Cath 10/02/2024: 100% occlusion of mid LAD, ELECTRICAL EQUIPMENT TESTER of RCA, underwent drug-eluting stent to the mid LAD lesion. LVEDP 38
Echo 10/02/2024: Severely reduced left ventricular systolic function with ejection fraction 15 to 20% with multiple segmental wall motion abnormalities involving the inferior septum, anterior septum, inferior and apical segments.
Plan:
-Patient admitted with AWMI and peak Troponin greater than 400. Patient with ELECTRICAL EQUIPMENT TESTER of RCA and collateral circulation and 100% mid LAD that was stented with a 2.5 mm Gonzalo JULIA.
-New to Brilinta, but she does not have any medical insurance. Will change to clopidogrel, last dose of Brilinta 10/03/24 PM, will give Plavix 600 mg 10/04/24 PM. Recommended to patient that she download and use the [employer] harlan or if she doesn't want to
do that then in general [employer] have the best falk prices for meds.
-Reviewed with patient that she should take aspirin 81 mg daily lifelong with virtually no exceptions.
-New to atorvastatin 80 mg daily, direct LDL 122.
-New to Toprol XL 12.5 mg daily, low dose due to symptomatic hypotension. Patient needs to be OOB 10/04/24 and reassess BP. Patient says that she was told about 8 years ago that she had high BP, but did not follow up and has not had medical insurance
for over a year and not seeking regular medical care.
-Call to cardiac rehab 10/04/24 by me to check on ability to complete cardiac rehab with medicaid pending. Asked cardiac rehab to talk to patient.
-Hyperglycemic and HgbA1c 6% c/w prediabetes. Low carb diet and encouraged to establish with a PCP.
-Patient already quit smoking on her own in April and I congratulated her on that feat!
-Tele reviewed by me 10/04/24 and patient with frequent solitary PVCs, no VT
-Cre was 1.5 on admission, peaked at 1.6 on 10/02/24 and improved to 1.4 on 10/04/24. No known h/o CKD. New prediabetes. Has not had regular healthcare for years. Recommend outpatient labs pending medicaid auth or maybe she can follow with the [facility]
-Shades drawn and in bed, encouraged patient to be OOB, order breakfast and be ready for possible d/c 10/04/24.
Progress Note - Facilities Manager
Subjective
Date of Service: October 04, 2024
She feels nauseous, has not eaten
Objective
Labs:
10/02/24 02:57
10/04/24 04:24
Labs
Hgb 14.1 g/dL (12.0-16.0) 10/02/24 02:57
Hct 42.1 % (37.0-47.0) 10/02/24 02:57
Plt Count 210 10^3/uL (130-400) 10/02/24 02:57
PT 12.6 Sec (11.4-14.6) 10/01/24 23:50
INR 0.89 10/01/24 23:50
Sodium 139 mmol/L (135-145) 10/04/24 04:24
Potassium 4.2 mmol/L (3.5-5.1) 10/04/24 04:24
BUN 26 mg/dl (7-17) H 10/04/24 04:24
Creatinine 1.4 mg/dL (0.6-1.0) H 10/04/24 04:24
Glucose 124 mg/dl (70-99) H 10/04/24 04:24
Troponins
10/01/24 10/02/24 10/02/24
23:50 02:57 07:34
Troponin I 0.971 H* 208.000 H* D > 400.000 H* D
10/02/24 10/03/24 10/04/24
13:52 09:49 04:24
Troponin I 330.000 H* 136.000 H* 85.700 H*
Vital Signs and I&O:
Vital Signs
Temp Pulse Resp BP Pulse Ox
98.4 F 90 16 102/74 98
10/04/24 07:45 10/04/24 08:00 10/04/24 07:45 10/04/24 07:50 10/04/24 07:45
Vital Signs
Temp Pulse Resp BP Pulse Ox
98.4 F 90 16 102/74 98
10/04/24 07:45 10/04/24 08:00 10/04/24 07:45 10/04/24 07:50 10/04/24 07:45
Intake & Output
10/02/24 10/03/24 10/04/24 10/05/24
06:59 06:59 06:59 06:59
Intake Total 260 / 260 720 / 720
Output Total 500 / 500 300 / 300 950 / 950
Balance -500 / -500 -40 / -40 -230 / -230
Physical Exam
Physical Exam
GEN: NAD. AAOx3
HEENT: MMM
LUNGS: RA. No audible wheeze
CV: SR on tele.
[2024-10-04] MEDS: BRILINTA PO (09:28)
--- NOTE | 2024-10-04 09:28 | PTCARENOTE ---
Received patient this morning resting in bed, pulse ox on RA 96%. Denies any chest pain or sob. Seen by cardiology, encouraged patient of need to increase activity and begin discharge planning. Patient is ordering breakfast now and states she is
agreeable to either walk in the room or in the philip after.
[2024-10-04] MEDS: LOW STRENGTH ASPIRIN 81 MG PO (10:04)
[2024-10-04] MEDS: PROTONIX 40 MG PO (10:04)
[2024-10-04] MEDS: TOPROL XL 12.5 MG PO (10:04)
[2024-10-04] MEDS: FLUSH (NSS) 1 FLUSH IV (10:05)
[2024-10-04] MEDS: PLAVIX 600 MG PO (10:05)
--- NOTE | 2024-10-04 10:32 | W.DS.TRANS ---
DC Summary - Mutual Fund Manager
-
Discharge Instructions:
Discharge Diagnosis/Procedures Acute anterior wall myocardial infarction (heart
attack), pre-diabetes (impaired fasting glucose
)
Diet Low Sodium,Diabetic, Carb Controlled
Activity As tolerated
Driving Restrictions As prior to admission
Bathing Restrictions OK to Shower
Other Services Cardiac Rehab
Instructions:
Stand-Alone Forms: DC Instructions- Cath/EP Lab
Changes to Home Medications: Yes
Discharge Medications:
DC Medications w/original date entered in [employer]
aspirin 81 mg chewable tablet 81 mg PO DAILY Heart disease/condition #30 tabs 10/04/24
atorvastatin 80 mg tablet 80 mg PO QPM High cholesterol #30 tabs 10/04/24
metoprolol succinate 25 mg tablet,extended release 24 hr 12.5 mg (1/2 x 25 mg) PO DAILY Heart disease/condition #30 tabs 10/04/24
pantoprazole 40 mg tablet,delayed release 40 mg PO DAILY Gastrointestinal issue #30 tabs 10/04/24
ticagrelor 90 mg tablet (Brilinta) 90 mg PO BID Heart disease/condition #60 tabs 10/04/24
Home Medication Changes
All medications are new
Pending Results: No
--- NOTE | 2024-10-04 11:07 | PTCARENOTE ---
Loaded cardiac videos on the patient's TV to have heard watch regarding her angioplasty, post [place] and heart failure. Poor attention span, asking questions but not very engaged with watching provided videos. HF and CAD folders in the room and reviewed
dietary restrictions since patient admits to eating out often and buying prepared foods. Encouraged to continue reading provided information. Patient ambulated in the philip with me down to the visitor's lounge and back without any difficulty, denied
any chest pain or sob. Waiting for her breakfast now, patient for discharge home today.
[2024-10-04 11:49] VITALS: BP 106/80
--- NOTE | 2024-10-04 13:18 | PTCARENOTE ---
Reviewed discharge instructions including medications, activity restrictions, diet and follow up appointments with the patient and her S.O. and they state their understanding. Patient discharged home.
== END 2024-10-04 13:25 | disposition home or self-care (01) | DRG 321 ==
LOC: IVU 02:03
PROVIDERS: Internal Medicine Cardiovascular Disease; Physician Assistant; ADMITTING PHYSICIAN Hospitalist; ATTENDING PHYSICIAN Internal Medicine Interventional Cardiology; EMERGENCY PHYSICIAN Student in an Organized Health Care Education/Training Program
PROC: 027034Z Dilation of Coronary Artery, One Artery with Drug-eluting Intraluminal Device, Percutaneous Approach (ICD-10-PCS; 2024-10-02)
PROC: 4A023N7 Measurement of Cardiac Sampling and Pressure, Left Heart, Percutaneous Approach (ICD-10-PCS; 2024-10-02)
PROC: B2111ZZ Fluoroscopy of Multiple Coronary Arteries using Low Osmolar Contrast (ICD-10-PCS; 2024-10-02)
PROC: B2151ZZ Fluoroscopy of Left Heart using Low Osmolar Contrast (ICD-10-PCS; 2024-10-02)
DX: I21.09 ST elevation (STEMI) myocardial infarction involving other coronary artery of anterior wall (principal); I50.43 Acute on chronic combined systolic (congestive) and diastolic (congestive) heart failure; I13.0 Hypertensive heart and chronic kidney disease with heart failure and stage 1 through stage 4 chronic kidney disease, or unspecified chronic kidney disease; I25.10 Atherosclerotic heart disease of native coronary artery without angina pectoris; I25.82 Chronic total occlusion of coronary artery; I25.5 Ischemic cardiomyopathy; E78.5 Hyperlipidemia, unspecified; R73.03 Prediabetes; R73.9 Hyperglycemia, unspecified; I95.9 Hypotension, unspecified; I49.3 Ventricular premature depolarization; N18.9 Chronic kidney disease, unspecified; Z59.71 Insufficient health insurance coverage; Z87.891 Personal history of nicotine dependence; Z82.49 Family history of ischemic heart disease and other diseases of the circulatory system
CPT/HCPCS: 80048; 80053; 80061; 82962; 83036; 83721; 84484; 84703; 85025; 85027; 85347; 85610; 93005; 93306; 93458; 99152; 99153; 99291; C1725; C1753; C1769; C1874; C1894; C9606; J1327; Q9967

== ENCOUNTER 2024-10-29 02:32 | Emergency (ER) | payer SELFPAY ==
[2024-10-29] VITALS (8 sets, daily range): BP systolic 91–166; BP diastolic 63–98; BMI 33.4
[2024-10-29 03:26] LABS: Hematocrit 41.8 % (37.0-47.0); Hemoglobin 14.1 g/dL (12.0-16.0); Mean Corp Hgb Conc. 33.7 g/dL (33.0-37.0); Mean Corpuscular Volume 89.1 fL (81.0-99.0); Nucleated Red Blood Cells % 0 %; Platelet Count 202 10^3/uL (130-400); Red Cell Dist. Width 13.5 % (11.5-14.5)
[2024-10-29 03:28] LABS: ALT (SGPT) 23 U/L (0-35); AST (SGOT) 25 U/L (14-36); Albumin 4.5 g/dl (3.5-5.0); Alkaline Phosphatase 85 U/L (38-126); Blood Urea Nitrogen 35 mg/dl (7-17); Calcium 9.9 mg/dl (8.4-10.2); Carbon Dioxide 25 mmol/L (22-30); Chloride 109 mmol/L (98-107); Glucose 113 mg/dl (70-99); Potassium 4.9 mmol/L (3.5-5.1); Sodium 142 mmol/L (135-145); Total Protein 7.3 g/dl (6.3-8.2); eGFR 38.09
[2024-10-29 03:42] LABS: Troponin I 0.109 ng/ml
--- NOTE | 2024-10-29 06:03 | ED.GENMED ---
History of Present Illness
General
Chief Complaint: Heart Rate Problem
Time Seen by Provider: 10/29/24 06:02
History of Present Illness
History of Present Illness:
PAST MEDICAL HISTORY AND REVIEW OF OLD RECORDS
- The patient was seen as a STEMI nearly 4 weeks ago. At that time patient had total occlusion of RCA and mid LAD. She was found to have an ischemic cardiomyopathy with an EF of 15 to 20%. She also has a history of high blood pressure,
hyperlipidemia, possible CKD, is a former smoker and prediabetic. Was discharged on Toprol 12.5 mg daily as well as baby aspirin and Brilinta. She is known to [facility].
Note:
CHIEF COMPLAINT(S)
Irregular heart rate and elevated blood pressure.
HISTORY OF PRESENT ILLNESS
The patient is a 54-year-old female with a recent history of a myocardial infarction which occurred a few weeks ago. Following this event, she saw a hospital mortician who adjusted her medication, specifically increasing her metoprolol succinate dosage to
25 mg daily, and also prescribing lisinopril 5 mg. The patient presented today due to concerns about an irregular heartbeat and elevated blood pressure. She reported that on Sunday, she experienced left-sided chest discomfort not similar to prior
episodes and noted fluctuations in her blood pressure.
The patient mentioned being in a hot environment at home due to malfunctioning air conditioning, which exacerbated her symptoms, leading to a lack of appetite. Despite sikh to cooler conditions, she remains anxious due to recent high blood
pressure readings observed at home that fluctuated to concerning levels.
She typically does not monitor her blood pressure at home with any frequency, though she does occasionally check it. Current vital signs in the emergency department demonstrated a blood pressure of 132/90 mmHg and a heart rate of 90 beats per
minute, both with a normal sinus rhythm. These fluctuations were within expected ranges, considering the patients history and recent anxiety over her home blood pressure monitoring results. There were no signs of acute distress, and the patient
reported feeling better during her evaluation.
MEDICATIONS
- Metoprolol Succinate 25 mg daily
- Lisinopril 10 mg daily
REVIEW OF SYSTEMS
- Cardiovascular: Concerns of chest discomfort and recent irregular heartbeat.
- General: Previous episodes of increased blood pressure.
- Symptoms appear to be provoked by external heat conditions.
PHYSICAL EXAM
General: Alert, no acute distress.
Skin: Warm, dry.
Head: Normocephalic, atraumatic.
Neck: Supple, trachea midline.
Eye Ears, nose, mouth and throat: Oral mucosa moist.
Cardiovascular: Normal peripheral perfusion, No edema.
Respiratory: Respirations are non-labored.
Gastrointestinal: Abdomen nondistended.
Back: Normal range of motion, Normal alignment.
Musculoskeletal: Normal ROM, normal strength.
Neurological: Alert and oriented to person, place, time, and situation, No focal neurological deficit observed.
Psychiatric: Cooperative, appropriate mood & affect.
PROBLEM LIST
Acute Problems:
- Irregular heart rate
- Elevated blood pressure readings
- Left-sided chest discomfort
Chronic Problems:
- Hypertension
PLAN
- Repeat cardiac blood work to assess for any changes in cardiac markers.
- Notify cardiology about the recent symptoms and home blood pressure variations.
- Reassure the patient about current hospital monitor readings and regularity of the heart rate.
- Advise the patient against frequent home monitoring to avoid unnecessary anxiety.
DIFFERENTIAL DIAGNOSIS
The Differential Diagnosis includes, in no particular order and is not limited to:
- Hypertension-related fluctuations
- Anxiety-induced palpitations
- Arrhythmia
- Electrolyte imbalances
- Coronary artery disease exacerbation
- Hyperthyroidism
- Medication side effects
- Dehydration
- Orthostatic hypotension
- Cardiomyopathy
EKG
- Sinus 101, incomplete left bundle branch block, septal Q waves with associated ST elevation in the septal leads; repeat EKG shows a similar QRST morphology with heart rate of 73
LABS
- CBC normal, creatinine 1.6, troponin 0.109
-SUMMARY OF ENCOUNTER
The patient was seen in the emergency department due to concerns of irregular heartbeat and elevated blood pressure following a recent myocardial infarction. The emergency department conduct included monitoring her blood pressure, which showed a
current reading of 116/71 mmHg, and repeating cardiac blood work to assess troponin levels. The troponin levels showed a downward trend, which is a good sign of recovery from the heart attack. These findings were communicated to Dr. Haque, the
hospital mortician account consultant from [facility] with close outpatient management.
ASSESSMENT
The patient is post-myocardial infarction with a previously increased troponin level now decreasing, indicating no new acute cardiac event. Blood pressure and heart rate remain stable.
INDEPENDENT REVIEW OF LABS AND INTERPRETATION OF TESTS
My independent review of cardiac blood work is that the troponin level, previously peaking at around 400 during hospitalization, decreased from 0.109 overnight to 0.103, indicating positive recovery.
PATIENT EDUCATION AND COUNSELING
The patient was educated about the significance of troponin levels in diagnosing and monitoring a heart attack. She was reassured that the downward trend of her troponin levels is a sign of no new acute cardiac event.
FOLLOW-UP INSTRUCTIONS
The patient should call the cardiology office immediately to schedule a follow-up visit due to the history of myocardial infarction. The emergency department will also notify the office to prioritize scheduling her follow-up.
MEDICATION RECONCILIATION
No new medications were administered during this emergency department visit, and there were no changes to her existing medication regimen which includes Metoprolol Succinate 25 mg daily and Lisinopril 10 mg daily.
MEDICAL DECISION MAKING
- Number and Complexity of Problems Addressed: Chronic conditions affecting care include a recent myocardial infarction, irregular heartbeat, and hypertension. Differential diagnoses considered are hypertension-related fluctuations, anxiety-induced
palpitations, arrhythmia, electrolyte imbalances, coronary artery disease exacerbation, hyperthyroidism, medication side effects, dehydration, orthostatic hypotension, and cardiomyopathy.
- Data:
Category 1:
- My independent review of cardiac troponin levels showed improvement, indicating downward trends.
Category 3:
- Discussion of management with Dr. Armendariz, a hospital mortician, regarding the patient�s fluctuating blood pressures and declining troponin levels.
- Risk:
Consideration of Admission/Observation: Escalation of care including admission/observation was considered given the complexity and risk of the patients presenting complaint, exam findings, and/or their underlying comorbidities. However, ultimately I
feel the patient is safe for outpatient management with close follow-up. Reasoning: Work-up reassuring, does not reveal any acute life/organ threatening processes, patients symptoms well controlled upon reevaluation, reexamination is reassuring,
vitals are stable, patient agreeable with discharge, reliable for follow-up.
DIAGNOSIS
1. Status post-myocardial infarction (I21.3)
2. Hypertension (I10)
3. Elevated troponin level, resolving (R77.8)
Repeat blood pressure prior to discharge without any intervention 116/78.
Phy Exam
Physical Exam
Physical Exam:
See HPI
Course
Orders/Labs/Results
Orders:
Orders
10/29/24 02:37
ECG [Electrocardiogram (*1)] Urgent
Reason for Study: Tachycardia
EKG- Treatment ONCE
10/29/24 02:58
Complete Blood Count/With Diff Urgent
Comprehensive Metabolic Panel Urgent
NT-proBNP Urgent
Comment: ADD ON
Troponin I Urgent
10/29/24 06:06
Add On- LAB Urgent
Tests Added?: bnp
10/29/24 06:25
EKG [Electrocardiogram (*1)] Urgent
Reason for Study: Other
Other Reason for Exam: heart rate
10/29/24 06:26
EKG- Treatment ONCE
10/29/24 06:30
Troponin I Urgent
Abnormal Lab Results
10/29/24 10/29/24
02:58 06:30
Chloride 109 H mmol/L
(98-107)
BUN 35 H mg/dl
(7-17)
Creatinine 1.6 H mg/dL
(0.6-1.0)
Glucose 113 H mg/dl
(70-99)
Troponin I 0.109 H* ng/ml 0.103 H* ng/ml
10/29/24 02:58
10/29/24 02:58
Vital Signs
Initial and Last Documented VS:
Initial Vital Signs
Temp Pulse Resp BP Pulse Ox
36.3 C 114 22 166/98 98
10/29/24 02:34 10/29/24 02:34 10/29/24 02:34 10/29/24 02:34 10/29/24 02:34
Last Documented Vital Signs
Temp Pulse Resp BP Pulse Ox
36.3 C 73 16 102/73 98
10/29/24 02:34 10/29/24 06:00 10/29/24 06:00 10/29/24 06:00 10/29/24 06:06
*Pulse Oximetry
SaO2: 98
Oxygen Mode of Delivery: Room air
Patient hypoxic: no
*Critical Care Note
Total Time (30-74mins, 75-104mins- exclusive of procedures): Not Applicable
ED Attending Note
-
Portions of this chart may have been created with voice recognition software.� Occasional wrong word or��sound alike� substitutions may have occurred due to the inherent limitations of voice recognition software.
Discharge Plan
Departure
Prescriptions:
No Action
atorvastatin 80 mg Tablet
80 mg PO QPM Qty: 30 11RF
pantoprazole 40 mg Tablet,Delayed Release (Dr/Ec)
40 mg PO DAILY Qty: 30 11RF
aspirin 81 mg Tablet,Chewable
81 mg PO DAILY Qty: 30 0RF
metoprolol succinate 25 mg Tablet Extended Release 24 Hr
12.5 mg PO DAILY Qty: 30 11RF
ticagrelor [Brilinta] 90 mg Tablet
90 mg PO BID Qty: 60 11RF
Referrals:
NONE,* [Family Provider, Internal Medicine]
Interventions
Interventions:
*Risk Screen - Suicide Last Done: 10/29/24 02:34
*General Assessment Last Done: 10/29/24 04:18
*Neglect/Abuse Screening Last Done: 10/29/24 02:34
*ED- Fall Risk Assessment Last Done: 10/29/24 04:18
*ED COVID-19 Vaccine History Last Done: 10/29/24 04:18
ED- Cardiac Assessment Last Done: 10/29/24 04:18
ED- Pulmonary Assessment Last Done: 10/29/24 04:18
Discharge Date and Time
Print Language: MEXICAN
[2024-10-29 07:13] LABS: Troponin I 0.103 ng/ml
== END 2024-10-30 07:20 | disposition home or self-care (01) ==
LOC: EMR 02:32
PROVIDERS: Emergency Medicine; EMERGENCY PHYSICIAN Emergency Medicine
DX: I10 Essential (primary) hypertension (principal); E78.00 Pure hypercholesterolemia, unspecified; I25.10 Atherosclerotic heart disease of native coronary artery without angina pectoris; I25.2 Old myocardial infarction; I25.5 Ischemic cardiomyopathy; Z79.899 Other long term (current) drug therapy
CPT/HCPCS: 99283; 80053; 83880; 84484; 85025; 93005

== ENCOUNTER 2024-11-28 14:07 | Outpatient (RCR) | payer BC, SELFPAY | END 2024-11-28 23:59 | disposition home or self-care (01) | LOC: CRHB 14:07 | PROVIDERS: ATTENDING PHYSICIAN Internal Medicine Cardiovascular Disease | DX: I25.10 Atherosclerotic heart disease of native coronary artery without angina pectoris (principal); Z95.5 Presence of coronary angioplasty implant and graft; I25.2 Old myocardial infarction | CPT/HCPCS: 93797; 93798 ==

== ENCOUNTER → 2024-12-12 09:11 | Outpatient (REF) | payer BC, SELFPAY | LOC: HWRCS 09:11 | PROVIDERS: ATTENDING PHYSICIAN Physician Assistant Medical; FAMILY PHYSICIAN Family Medicine | DX: I21.09 ST elevation (STEMI) myocardial infarction involving other coronary artery of anterior wall (principal); I25.10 Atherosclerotic heart disease of native coronary artery without angina pectoris; I25.5 Ischemic cardiomyopathy | CPT/HCPCS: 93306; Q9957 ==

== ENCOUNTER → 2024-12-13 10:15 | Outpatient (REF) | payer BC, SELFPAY ==
[2024-12-13 10:53] LABS: Blood Urea Nitrogen 23 mg/dl (7-17); Calcium 9.7 mg/dl (8.4-10.2); Carbon Dioxide 27 mmol/L (22-30); Chloride 109 mmol/L (98-107); Glucose 154 mg/dl (70-99); Potassium 4.6 mmol/L (3.5-5.1); Sodium 142 mmol/L (135-145); eGFR 38.09
== END ==
LOC: REG 10:15
PROVIDERS: ATTENDING PHYSICIAN Internal Medicine Cardiovascular Disease
DX: E87.5 Hyperkalemia (principal)
CPT/HCPCS: 36415; 80048

== ENCOUNTER 2024-12-29 14:05 | Outpatient (RCR) | payer BC, SELFPAY | END 2024-12-29 23:59 | disposition home or self-care (01) | LOC: CRHB 14:05 | PROVIDERS: ATTENDING PHYSICIAN Nuclear Medicine Nuclear Cardiology | DX: I25.10 Atherosclerotic heart disease of native coronary artery without angina pectoris (principal); I25.2 Old myocardial infarction; Z95.5 Presence of coronary angioplasty implant and graft | CPT/HCPCS: 93797; 93798 ==

== ENCOUNTER 2024-12-31 13:08 | Outpatient (RCR) | payer BC, SELFPAY | END 2025-01-01 09:53 | disposition home or self-care (01) | LOC: CRHB 13:08 | PROVIDERS: ATTENDING PHYSICIAN Nuclear Medicine Nuclear Cardiology | DX: I25.10 Atherosclerotic heart disease of native coronary artery without angina pectoris (principal); I25.2 Old myocardial infarction; Z95.5 Presence of coronary angioplasty implant and graft | CPT/HCPCS: 93797; 93798 ==

== ENCOUNTER → 2025-01-05 09:28 | Outpatient (REF) | payer BC, SELFPAY ==
[2025-01-05 11:29] LABS: ALT (SGPT) 33 U/L (0-35); AST (SGOT) 26 U/L (14-36); Albumin 4.1 g/dl (3.5-5.0); Alkaline Phosphatase 79 U/L (38-126); Blood Urea Nitrogen 27 mg/dl (7-17); Calcium 9.3 mg/dl (8.4-10.2); Carbon Dioxide 28 mmol/L (22-30); Chloride 108 mmol/L (98-107); Glucose 113 mg/dl (70-99); HDL Cholesterol 34 mg/dl; LDL Cholesterol, Calculated 61 mg/dl; Potassium 4.9 mmol/L (3.5-5.1); Sodium 143 mmol/L (135-145); Total Protein 6.7 g/dl (6.3-8.2); Very Low Density Lipoprotein 47 mg/dl (0-30); eGFR 41.16
== END ==
LOC: REG 09:28
PROVIDERS: ATTENDING PHYSICIAN Physician Assistant Medical; FAMILY PHYSICIAN Hospitalist
DX: I25.10 Atherosclerotic heart disease of native coronary artery without angina pectoris (principal); E78.5 Hyperlipidemia, unspecified
CPT/HCPCS: 36415; 80053; 80061

== ENCOUNTER → 2025-01-26 09:25 | Outpatient (REF) | payer BC, SELFPAY ==
[2025-01-26 11:18] LABS: Hematocrit 45.9 % (37.0-47.0); Hemoglobin 14.5 g/dL (12.0-16.0); Mean Corp Hgb Conc. 31.6 g/dL (33.0-37.0); Mean Corpuscular Volume 92.0 fL (81.0-99.0); Nucleated Red Blood Cells % 0 %; Platelet Count 168 10^3/uL (130-400); Red Cell Dist. Width 13.8 % (11.5-14.5)
[2025-01-26 11:28] LABS: APTT 33.5 Sec (23.4-35.0)
[2025-01-26 11:47] LABS: ALT (SGPT) 23 U/L (0-35); AST (SGOT) 23 U/L (14-36); Albumin 4.1 g/dl (3.5-5.0); Alkaline Phosphatase 69 U/L (38-126); Blood Urea Nitrogen 26 mg/dl (7-17); Calcium 9.3 mg/dl (8.4-10.2); Carbon Dioxide 27 mmol/L (22-30); Chloride 108 mmol/L (98-107); Glucose 109 mg/dl (70-99); Potassium 4.9 mmol/L (3.5-5.1); Sodium 142 mmol/L (135-145); Total Protein 6.5 g/dl (6.3-8.2); eGFR 48.87
== END ==
LOC: REG 09:25
PROVIDERS: ATTENDING PHYSICIAN Internal Medicine Interventional Cardiology; FAMILY PHYSICIAN Hospitalist
DX: I25.5 Ischemic cardiomyopathy (principal); E78.5 Hyperlipidemia, unspecified
CPT/HCPCS: 36415; 80053; 85025; 85730

== ENCOUNTER 2025-02-02 10:16 | Day surgery (SDC) | payer BC, SELFPAY ==
[2025-02-02] VITALS (14 sets, daily range): BP systolic 98–120; BP diastolic 59–88; BMI 32.7
--- NOTE | 2025-02-02 09:07 | W.ICD.CONTRA ---
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
-
History of [place]?: Yes
LV Function
Left ventricular function study result?: Ejection Fraction </= 35%
ACEI/ARB/ARNI
Patient already on ACEI/ARB/ARNI: No
ACEI/ARB/ARNI Contraindication: Hypotension and Worsening Renal Function
Beta-John
Patient already on Beta John: Yes
--- NOTE | 2025-02-02 14:11 | ITS.CL.ICD ---
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
Implantable Cardioverter Defibrillator
Procedure Report:
ICD IMPLANTATION REPORT
Date of Procedure: February 02, 2025
Primary Care Provider: Poly Kirkpatrick MD
Primary slurry worker: John Shane MD
PROCEDURES:
ICD Implant
HISTORY:
NYHA class 3, LVEF 28% by most recent study January 09, 2025 (echocardiogram) and was 15 to 20% by echocardiogram October 02, 2024
Duration of HF > 3 months despite guideline directed medical therapy at maximally tolerated doses
Cardiomyopathy type ischemic/infarct related
Primary prevention
Life expectancy > 1 year
Lidocaine with epi was used for local anesthesia. Central venous access was obtained via axillary venipuncture. An incision was made along the right (she is left-handed) chest and a pre-pectoral pocket was formed. Using a Seldinger technique and
peel-away sheaths, the pacing leads were placed under fluoroscopic guidance.
Once testing (see below) showed adequate and stable function, the leads were secured using the suture sleeves. The pocket was liberally irrigated with antibiotic solution. The leads were connected to the generator header and the leads and
generator were placed within the pocket. Fluoroscopy confirmed stable lead position. The pocket was closed in the typical fashion.
IMPLANTS:
ICD Medtronic [id number], SN [id number], Left Pectoral
RA Medtronic 5076, SN [id number], RAA
RV Medtronic 6935, SN [id number], RV apical septum
DEVICE TESTING:
Sensing: RA 0.8 mV, RV 15 mV
Capture: RA 1.25 V@0.4ms, RV 0.75 V@0.4ms
Ohms: RA 475, RV 467
Induction: Shock on T
FINAL PROGRAMMING:
Jose Pacing: MVP mode 50-130 ppm
Tachy parameters:
VF: 188 bpm, Shock
VT: 150 bpm, Monitor
COMPLICATIONS:
None
CONCLUSIONS:
Successful implant of dual chamber ICD system.
Normal function of ICD and leads at implant testing.
RECOMMENDATIONS:
Post op care (tele, CXR, IV abx).
In-Office wound check in 5-7 days.
Copy to:
Primary Care Provider: Poly Kirkpatrick MD
Primary slurry worker: John Shane MD
--- NOTE | 2025-02-02 14:38 | PTCARENOTE ---
Patient admitted to IVU. AO x 3. NSR 60, VSS. Right chest wall pressure dressing secure with immobilizer on right arm. Precautions reviewed. Lunch ordered. Call whipple in reach
[2025-02-02] MEDS: TYLENOL 650 MG PO ×2 (17:06→22:15)
[2025-02-02] MEDS: LIPITOR 80 MG PO (17:06)
[2025-02-02] MEDS: ANCEF 5 IV (19:08)
--- NOTE | 2025-02-03 01:37 | PTCARENOTE ---
Tele remains NSR, HR in the 70-80's. Patient c/o discomfort at surgical site. PRN Tylenol administered--see MAR for further details. Right anterior chest dressing w/ small drainage on Aquacel. Pressure dressing remains in place, and right arm in
immobilizer. Educated patient about activity restrictions. Verbalized understanding. She ambulates self in room, denies any dizziness.
[2025-02-03 04:07] VITALS: BMI 33.1
[2025-02-03 04:17] VITALS: BP 127/82
[2025-02-03] MEDS: TYLENOL 650 MG PO (04:19)
[2025-02-03] MEDS: ANCEF 5 IV (04:19)
[2025-02-03 04:55] LABS: Hematocrit 43.8 % (37.0-47.0); Hemoglobin 14.1 g/dL (12.0-16.0); Mean Corp Hgb Conc. 32.2 g/dL (33.0-37.0); Mean Corpuscular Volume 91.6 fL (81.0-99.0); Platelet Count 169 10^3/uL (130-400); Red Cell Dist. Width 13.8 % (11.5-14.5)
[2025-02-03 05:19] LABS: Blood Urea Nitrogen 31 mg/dl (7-17); Calcium 9.3 mg/dl (8.4-10.2); Carbon Dioxide 22 mmol/L (22-30); Chloride 108 mmol/L (98-107); Estimated Creatinine Clearance 51 ml/min; Glucose 130 mg/dl (70-99); Magnesium 2.0 mg/dl (1.6-2.3); Potassium 4.9 mmol/L (3.5-5.1); Sodium 136 mmol/L (135-145); eGFR 48.87
[2025-02-03 07:00] VITALS: BP 110/76
[2025-02-03] MEDS: TOPROL XL 12.5 MG PO ×2 (07:58→11:12)
[2025-02-03] MEDS: PLAVIX 75 MG PO (07:58)
[2025-02-03] MEDS: PROTONIX 40 MG PO (07:59)
--- NOTE | 2025-02-03 09:08 | CM ---
Addendum entered by Marcela Garza 02/03/25 10:59:
Telephone call to her insurance to check on coverage for Farxiga and Jardiance. Farxiga co-pay would be $100.00 a month or $200.00 for three months via mail order. Generic Farxgia is not covered under her plan. Jardiance co-pay is $100.00 a month
or $200.00 for ninety day mail order. She has commercial insurance so she can use the zero co-pay card for Farxiga. Gave her the coupon. She is agreeable to the co-pay of zero using the coupon.
Original Note:
Reviewed chart. Met with Ms. Kohlertayoandres to review discharge plans. She states prior to admission she resides with her significant other in a two story home with one step to enter. She states she has a full flight of steps to get to bedroom/full
bathroom. She states prior to admission she was independent with ambulation and adls. She states she does not have any DME in the home. She states she has a prescription plan. The discharge plan is to return home with her significant other when
medically stable.
--- NOTE | 2025-02-03 09:29 | W.PN.CARDCBS ---
Addendum entered and electronically signed by Harshil Pringle MD 02/03/25 11:04:
Patient seen and examined
Agree with BRICKLAYER HELPER note and assessment
Agree with BRICKLAYER HELPER plan
Reviewed chest x-ray with stable lead positions and telemetry
Exam:
Right sided device is clean dry intact without hematoma
JVP 6
Cor regular without murmur
Lungs are clear to oscillation bilaterally
Abdomen soft nontender positive bowel sounds
No extremity edema
Alert and x 3
Impression:
Chronic HFrEF 15-20%
Ischemic cardiomyopathy
post DC ICD 02/02/25
CAD/STEMI
100% occlusion of mid LAD s/p 2.5 x 22 mm [place] JULIA 10/02/2024
OBGYN HOSPITALIST PHYSICIAN of RCA by cath 10/02/2024HTN
Hyperlipemia
LV apical thrombus 12/25 on Echo, stable on repeat 01/24
Moderate MR/TR
CKD3a
Pre DM
former tobacco
Plan:
post DC ICD 02/02/25
site stable with marked drainage
moderate pain at site, will give one time Ultram 50mg now and ES tylenol tid at home
CXR no PTX, leads in good position
Resume OAC Wed am, continue Plavix
Activity restrictions reviewed
Incision check 1 week DCA
home today
Original Note:
Today's Communication / Plan
-
post DC ICD implant, stable for d/c home
Assess cost of SGLT2i to add to GDMT
Impression / Plan
-
Primary Care Provider: Poly Kirkpatrick MD
Primary director of labor and delivery: John Shane MD
Impression:
Chronic HFrEF 15-20%
Ischemic cardiomyopathy
post DC ICD 02/02/25
CAD/STEMI
100% occlusion of mid LAD s/p 2.5 x 22 mm [place] JULIA 10/02/2024
OBGYN HOSPITALIST PHYSICIAN of RCA by cath 10/02/2024
HTN
Hyperlipemia
LV apical thrombus 12/25 on Echo, stable on repeat 01/24
Moderate MR/TR
CKD3a
Pre DM
former tobacco
Plan:
post DC ICD 02/02/25
site stable with marked drainage
moderate pain at site, will give one time Ultram 50mg now and ES tylenol tid at home
CXR no PTX, leads in good position
tele SR, occasional Apacing
Resume OAC Wed am, continue Plavix
CAD - continue atorvastatin and metoprolol
HF - unable to tolerate ACEi/ARB, MMA d/t hyperkalemia, Will assess cost of Farxiga/Jardiance and initiate if cost not prohibitive
Activity restrictions reviewed
Incision check 1 week DCA
home today
Progress Note - Technology Project Manager
Subjective
Date of Service: February 03, 2025
denies cp, sob, moderate incision pain, also complained of severe pain at IV site with induction of anesthesia
Objective
Labs:
02/03/25 04:38
02/03/25 04:38
Labs
Hgb 14.1 g/dL (12.0-16.0) 02/03/25 04:38
Hct 43.8 % (37.0-47.0) 02/03/25 04:38
Plt Count 169 10^3/uL (130-400) 02/03/25 04:38
Sodium 136 mmol/L (135-145) 02/03/25 04:38
Potassium 4.9 mmol/L (3.5-5.1) 02/03/25 04:38
BUN 31 mg/dl (7-17) H 02/03/25 04:38
Creatinine 1.3 mg/dL (0.6-1.0) H 02/03/25 04:38
Glucose 130 mg/dl (70-99) H 02/03/25 04:38
Vital Signs and I&O:
Vital Signs
Temp Pulse Resp BP Pulse Ox
97.6 F 70 18 127/82 98
02/03/25 06:57 02/03/25 06:00 02/03/25 06:57 02/03/25 04:17 02/03/25 06:57
Vital Signs
Temp Pulse Resp BP Pulse Ox
97.6 F 70 18 127/82 98
02/03/25 06:57 02/03/25 06:00 02/03/25 06:57 02/03/25 04:17 02/03/25 06:57
Intake & Output
02/01/25 02/02/25 02/03/25 02/04/25
05:59 06:59 06:59 06:59
Intake Total 960 / 960
Balance 960 / 960
Physical Exam
Physical Exam
NAD, AOX3
S1, S2, RRR
CTAB, non labored, no wheeze
SNTND Bsx4
L CW site with marked old drainage, pressure dressing removed,m scant ecchymosis lateral to site
[2025-02-03] MEDS: ULTRAM 50 MG PO (11:12)
[2025-02-03 11:50] VITALS: BP 115/83
--- NOTE | 2025-02-03 11:59 | W.DS.TRANS ---
Addendum entered and electronically signed by LEILANI Burrows 02/03/25 12:34:
metoprolol xl 25mg is only daily not BID (this is not a change)
Original Note:
DC Summary - Junior Brand Manager
-
Discharge Instructions:
Discharge Diagnosis/Procedures ICD implant
Diet Low Cholesterol,2 Gram Sodium
Driving Restrictions No driving for 1 week
Bathing Restrictions OK to Shower
Instructions: Dapagliflozin
Stand-Alone Forms: DC Inst - Implanted Device
Changes to Home Medications: Yes
Discharge Medications:
DC Medications w/original date entered in [facility]
atorvastatin 80 mg tablet 80 mg PO QPM High cholesterol #30 tabs 10/04/24
pantoprazole 40 mg tablet,delayed release 40 mg PO DAILY Gastrointestinal issue #30 tabs 10/04/24
apixaban 5 mg tablet (Eliquis) 5 mg BID Blood Clot Prevention/Tx 02/02/25
Held on 02/03/25. Instructions: Resume on 02/04/25.
clopidogrel 75 mg tablet 75 mg PO DAILY Blood Clot Prevention/Tx 02/02/25
dapagliflozin propanediol 10 mg tablet (Farxiga) 10 mg PO DAILY #30 tabs 02/03/25
metoprolol succinate 25 mg tablet,extended release 24 hr 25 mg PO BID 02/03/25
Home Medication Changes
new to dapagliflozin
Pending Results: No
--- NOTE | 2025-02-03 13:07 | PTCARENOTE ---
Pt c/o incisional pain, med with Toradol as ordered by Sanam Lewis. Pt reported some relief. Farxiga was priced to Pt, Pt agreeable to amt. D/C orders reviewed with Pt, she expressed understanding.
== END 2025-02-03 13:09 | disposition home or self-care (01) ==
LOC: CATH 10:16
PROVIDERS: Nurse Practitioner; ATTENDING PHYSICIAN Internal Medicine Cardiovascular Disease; FAMILY PHYSICIAN Hospitalist; OTHER PHYSICIAN Internal Medicine Interventional Cardiology
DX: I25.5 Ischemic cardiomyopathy (principal); I13.0 Hypertensive heart and chronic kidney disease with heart failure and stage 1 through stage 4 chronic kidney disease, or unspecified chronic kidney disease; I50.22 Chronic systolic (congestive) heart failure; I08.1 Rheumatic disorders of both mitral and tricuspid valves; R73.03 Prediabetes; E78.5 Hyperlipidemia, unspecified; I25.10 Atherosclerotic heart disease of native coronary artery without angina pectoris; I25.82 Chronic total occlusion of coronary artery; Z95.5 Presence of coronary angioplasty implant and graft
CPT/HCPCS: 33249; 71045; 80048; 83735; 85027; 93005; C1721; C1777; C1898; Q9967

== ENCOUNTER → 2025-03-31 11:25 | Outpatient (REF) | payer BC, SELFPAY | LOC: WDC 11:25 | PROVIDERS: ATTENDING PHYSICIAN Hospitalist | DX: Z12.31 Encounter for screening mammogram for malignant neoplasm of breast (principal) | CPT/HCPCS: 77063; 77067 ==